=== PATIENT | male | born 1995 | race Caucasian/White ===

== ENCOUNTER 2018-04-11 19:20 | Emergency (ER) | payer BC, SELFPAY ==
[2018-04-11 19:21] VITALS: BP 176/102; PULSE 83; RESP 18; TEMP 36.4; O2SAT 97; BMI 24.6
[2018-04-11] MEDS: oxyCODONE 5 MG Tablet 10 MG PO (19:34)
--- NOTE | 2018-04-11 19:40 | RAD_ITS ---
STUDY: X-RAY - MANDIBLE (COMPLETE) REASON FOR EXAM: Male, 22 years old. Trauma. TECHNIQUE: 6 view(s) of the mandible were obtained. COMPARISON: None. FINDINGS: Normal mandible. Normal visualized right temporomandibular joint. Normal visualized left temporomandibular joint. The remaining visualized osseous structures are normal. The soft tissue structures are unremarkable. There is no demonstrated fracture. RAD/Mandible Less Than 4 Views IMPRESSION: Normal x-ray examination of the mandible. Electronically Signed: Saulo Garner MD at 19:54 EDT , Service support ,
[2018-04-11] MEDS: Bupivacaine Mpf 0.5% 30 ML VIAL INFILT (21:19)
[2018-04-11 21:23] VITALS: BP 162/93; PULSE 58; O2SAT 99
--- NOTE | 2018-04-11 21:23 | ED.DCSUM_ITS ---
- ER Visit Summary Date of Service: 04/11/18 Chief Complaint: Laceration History of Present Illness: The patient is a 22 M who lives in [place]. He was in a hockey game and shoulder check someone. They fell and that her ice skate came up and hit him in the mouth. He did not have a loss of consciousness. His tetanus is up-to-date. He reports that he has a dull, aching pain to his mouth that is 6 out of 10 in severity. Physical Examination: Vitals: Stable. Afebrile. Face: 1 cm laceration to the left side of his lower lip. This does cross the vermilion border. He has a 3 cm stellate irregular laceration to the left side of his mandible. There is a 2 cm intraoral laceration at the junction of his lip and gums inferiorly. This is gaping. He has subluxation of his mandibular central and left lateral incisors. Neck: No vertebral tenderness. Full ROM without difficulty. Cleared by NEXUS criteria. Back: No vertebral tenderness. General: A&O x 3. NAD. Cardiovascular exam: Regular rate and rhythm, no murmur, rub or gallop. Respiratory exam: Chest nontender. No crepitus. Clear to auscultation bilaterally. No wheezes or stridor. Abdominal exam: Soft, nontender, nondistended, normal bowel sounds. No pain in RUQ or LUQ specifically. No peritoneal signs. Extremity: Atraumatic. No pain with range of motion. Test Results: X-ray shows no mandible fracture. Emergency Department Course and Treatment: The patient was treated with oxycodone p.o. He had an inferior alveolar nerve block performed. The 2 subluxed teeth were then put back in place and splinted with co-pack. He tolerated this well. He had a mental nerve block and laceration repair. He tolerated this well. Treatment Plan: Patient will be discharged instructions to follow-up with his dentist as soon as possible. As the intraoral laceration was repaired he was treated with amoxicillin will be discharged with amoxicillin. He also be given a prescription for Percocet for pain. Return to the emergency department for any worsening symptoms. Disposition: To home in improved and stable condition. Impression: 1. Subluxation mandibular central and left lateral incisors. 2. Lip laceration, 1 cm, repaired. 3. Chin laceration, 3 cm, repaired. 4. Internal oral laceration, 2 cm, repaired. 5. Infra alveolar nerve block. 6. Mental nerve block. Procedure note: Wound was cleansed with chlorhexidine soap. Copiously irrigated with normal saline. Wound was explored there is no foreign material present. It was closed with a total of 11 simple interrupted 5-0 rapid Vicryl sutures. The patient tolerated it well. The lip was closed with 2 sutures. The first of these was placed at the vermilion border and meticulous care was used to align this. The intraoral laceration was closed with 2 sutures. The chin was closed with 7 sutures. This note was generated with [employer] dictation software. It may contain incorrect words, spelling, and punctuation that were not noted in review of the chart prior to signing ED Disposition - Plan for ED Patient: Disposition: Home or Assisted Living Chief Complaint: Trauma Instructions: ED Laceration Facial Sutr Tape, ED Dental Trauma Ch Prescriptions: Oxycodone HCl/Acetaminophen [Percocet 5/325] 1 tablet PO Q6H PRN PRN 5 Days #20 tablet PRN Reason: Pain Amoxicillin 500 mg PO TID #30 tablet Referrals: Dentist,Your [STAFF PHYSICIAN] - As soon as possible
[2018-04-11] MEDS: AMOXICILLIN 500 MG CAPSULE PO (21:29)
[2018-04-11] MEDS: oxyCODONE 5 MG Tablet PO (21:29)
== END 2018-04-11 21:33 | disposition home or self-care (01) ==
PROVIDERS: Emergency Provider Emergency Medicine
DX: S03.2XXA Dislocation of tooth, initial encounter (principal); S01.511A Laceration without foreign body of lip, initial encounter; S01.81XA Laceration without foreign body of other part of head, initial encounter; S01.512A Laceration without foreign body of oral cavity, initial encounter; W03.XXXA Other fall on same level due to collision with another person, initial encounter; Y93.22 Activity, ice hockey
CPT/HCPCS: 12014; 41899; 70100; 99285; A4216